=== PATIENT | male | born 1935 | race Caucasian/White ===

== ENCOUNTER 2016-12-30 10:35 | Inpatient (IN) | payer OTHER ==
[~2016-12-30] VITALS: Ht 172.7 cm; Wt 111.5 kg
[~2016-12-30 10:35] MED LIST: ANT25 PO; CHOL1CAP57 PO; CIPR-255 PO; CMD2 PO; CRD200 PO; GABA-112 PO; ROSU20TA PO; TYLOTC500 PO; WARF2TAB PO; ZNTT/150 PO; [UNRECOGNIZED DRUG - CODE] PO
[2016-12-30] MEDS ORDERED: LSN/10125 PO (11:36)
[2016-12-30] MEDS ORDERED: TCMD2 PO (11:36)
[2016-12-30] MEDS ORDERED: VNTHFA/IN INH (11:36)
[2016-12-30] MEDS ORDERED: AMIO200T4 PO (11:36)
[2016-12-30] MEDS ORDERED: ANT25 PO (11:36)
--- NOTE | 2016-12-30 12:06 | DIAGNOSTIC IMAGING REPORT ---
CHEST ONE VIEW PORTABLE CLINICAL HISTORY: Atypical chest pain. Hand and feet swelling. COMPARISON STUDY: 04/20/2013 FINDINGS: The heart is borderline enlarged. There are bilateral calcified pleural plaques. There is no lobar consolidation. There is slight interstitial prominence but no evidence of overt failure.[ No pleural effusions are visualized. IMPRESSION: 1. Mild interstitial prominence but no evidence of overt failure 2. Calcified pleural plaques 3. No evidence of focal pulmonary consolidation Electronically signed by: Michele Young M.D. 12/30/2016 12:04 PM Dictated Date/Time: 12/30/2016 12:04 PM
[2016-12-30 12:15] LABS: BASO % 0.2 %; BASO ABS # 0.02 K/uL (0-0.2); COMPLETE YES; EOS % 0.9 %; HEMATOCRIT 38.7 % (42-52); IG% 1.3 %; LYMPH % 22.9 %; LYMPH ABS # 2.06 K/uL (1.2-3.4); MEAN CELL VOLUME 90.6 fL (80-100); MEAN CORPUSCULAR HEMOGLOBIN 30.9 pg (25-34); MEAN CORPUSCULAR HGB CONC 34.1 g/dl (32-36); MEAN PLATELET VOLUME 9.6 fL (7.4-10.4); MONO % 7.9 %; NEUT % 66.8 %; PLATELET COUNT 165 K/uL (130-400); RED BLOOD COUNT 4.27 M/uL (4.7-6.1); WHITE BLOOD COUNT 8.99 K/uL (4.8-10.8)
[2016-12-30 12:27] LABS: INR 1.7 (0.9-1.1); PARTIAL THROMBOPLASTIN RATIO 1.4; PROTHROMBIN TIME (PATIENT) 19.1 SECONDS (9.0-12.0)
[2016-12-30 12:33] LABS: BUN/CREATININE RATIO 17.8 (10-20); CALCIUM 8.7 mg/dl (8.5-10.1); CREATININE 1.4 mg/dl (0.60-1.40); POTASSIUM 4.2 mmol/L (3.5-5.1)
[2016-12-30 12:38] LABS: CKMB/CK RATIO 1.3 (0-3.0)
[2016-12-30 14:47] LABS: URINE APPEARANCE CLEAR (CLEAR); URINE BILIRUBIN NEG (NEG); URINE COLOR YELLOW; URINE NITRITE NEG (NEG); URINE SPECIFIC GRAVITY 1.014 (1.000-1.030); UROBILINOGEN NEG (NEG)
[2016-12-30 14:56] LABS: MANUAL MICROSCOPIC REQUIRED? NO; REVIEW REQ? NO
[2016-12-30] MEDS ORDERED: ONDANSETRON INJ 2 MG/ML 2 ML VIAL IV PRN (15:15)
[2016-12-30] MEDS ORDERED: ACETAMINOPHEN 325 MG TAB PO PRN (15:15)
[2016-12-30] MEDS ORDERED: LISI-729 PO (15:22)
[2016-12-30] MEDS ORDERED: LEVO25TA PO (15:22)
[2016-12-30] MEDS ORDERED: TAMS0.4C38 PO (15:22)
[2016-12-30] MEDS ORDERED: TRAZ50TA35 PO (15:22)
[2016-12-30] MEDS ORDERED: LISINOPRIL 5 MG TAB PO ONE (15:22)
[2016-12-30] MEDS ORDERED: AMIODARONE 200 MG TAB PO ONE (15:22)
--- NOTE | 2016-12-30 16:13 | History and Physical ---
History & Physical Date of Service Dec 30, 2016. History & Physical This is a 81 year old male with PMH of A. fib on Coumadin, hypothyroidism, HTN, HLD venous insufficiency, asbestosis - presents with lower extremity edema and mild hypoxia - denies feeling short of breath, denies chest pain; no other symptoms to note currently; oxygen in place and saturating well during exam; +2 pitting edema b/l LE VITALS: Last Vital Signs Documentation Date Time Temp Pulse Resp B/P Pulse Ox O2 Delivery O2 Flow Rate FiO2 12/30/16 16:06 51 152/74 93 2.0 12/30/16 13:47 18 Nasal Cannula 12/30/16 10:52 36.6 GEN: no acute distress CVS: RRR, +S1, S2 LUNGS: CTA b/l, no wheezing EXT: +2 pitting edema b/l LE, slightly past the knees Venous Insufficiency swelling likely related to venous insufficiency check an Echo to make sure it is not CHF BNP normal start IV Lasix 20mg for now, switch to PO soon monitor creat A. Fib currently NSR INR = subtherapeutic at 1.7 cont. Coumadin, goal INR of 2-3 Hypoxia likely related to asbestosis and chronic bronchitis follows with Dr. Rascon monitor, saturating better during my exam may need two step
[2016-12-30 17:00] VITALS: BP 164/81; PULSE 57; TEMP 36.4; O2SAT 91; Ht 172.7 cm; Wt 111.5 kg
--- NOTE | 2016-12-30 17:25 | History and Physical ---
History & Physical Date & Time of Service: Dec 30, 2016 at 17:00 Chief Complaint: BLLE Swelling Primary Care Physician: Teo Torres D.O. History of Present Illness 81 year old male who was referred to the ER by his PCP for BLLE edema. Patient reports he first noted the swelling about 3 days ago. He reports it was first in his feet and gradually worked its way up. About one week ago he reports URI type symptoms with cough that was occasionally productive for a yellow sputum. He reports it is improving. He denies chest pain, palpitations, and shortness of breath. No orthopnea. He felt like his pants were fitting a little tighter today. No lightheadedness, dizziness, diaphoresis, or syncopal events. He denies abdominal pain, nausea, vomiting, and diarrhea. No fever or chills. He denies urinary symptoms. In the ER, patient was found to be hypoxic on room at 89%. This improved with oxygen 2L via NC. Labs are unremarkable. CXR shows mild prominence but no overt CHF. EKG does not show any acute ST changes. 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 Status: Chronic (2) History of incisional hernia repair Status: Chronic (3) History of right hemicolectomy Status: Chronic (4) Lysis of adhesions Status: Chronic Family History non contributory due to patient's age Social History Smoking Status: Former Smoker Alcohol Use: none Immunizations History of Influenza Vaccine: Yes Influenza Vaccine Date: Aug 11, 2016 History of Tetanus Vaccine?: Yes Tetanus Immunization Date: May 05, 2016 History of Pneumococcal: Yes Pneumococcal Date: Jan 04, 2016 Multi-Drug Resistant Organisms History of MDRO: No Allergies Coded Allergies: Sulfa Antibiotics (Verified Allergy, Severe, SHORTNESS OF BREATH, 12/30/16) Ezetimibe (Verified Adverse Reaction, Mild, STOMACH UPSET, 12/30/16) Adhesives (Verified Adverse Reaction, Unknown, SKIN TEARING, 12/30/16) Home Medications Scheduled Acetaminophen (Tylenol), 500 MG PO Q6HR PRN Amiodarone Hcl (Cordarone), 200 MG PO QAM Cholecalciferol (Vitamin D3), 1,000 INTER.UNIT PO DAILY Gabapentin (Neurontin), 100 MG PO BID Levothyroxine Sodium (Synthroid), 1 TAB PO DAILY Lisinopril (Prinivil), 5 MG PO DAILY Rosuvastatin Calcium (Crestor), 10 MG PO Q2D Tamsulosin Hcl (Flomax), 1 CAP PO DAILY Trazodone Hcl (Trazodone), 50 MG PO HS Warfarin Sod (Coumadin), 2 MG PO DAILY Warfarin Sodium (Coumadin), 1 MG PO [id number] Scheduled PRN Albuterol Hfa (Ventolin Hfa), 2-4 PUFFS INH Q6H PRN for SOB/Wheezing Meclizine HCl (Meclizine HCl), 20 MG PO TID PRN for Dizziness or Vertigo Review of Systems 10 point review of systems was completed with the pertinent positives and negatives noted per the HPI Physical Exam Vital Signs Date Time Temp Pulse Resp B/P Pulse Ox O2 Delivery O2 Flow Rate FiO2 12/30/16 16:06 51 152/74 93 2.0 12/30/16 13:47 51 18 128/95 93 Nasal Cannula 2.0 12/30/16 13:10 47 12/30/16 12:20 50 20 155/76 95 Nasal Cannula 2.0 12/30/16 11:17 89 12/30/16 11:17 Nasal Cannula 2.0 12/30/16 11:04 60 12/30/16 10:52 36.6 65 19 132/71 92 Room Air General Appearance: no apparent distress Head: normocephalic Eyes: normal inspection ENT: hearing grossly normal Neck: supple, no JVD Respiratory/Chest: lungs clear, normal breath sounds, no respiratory distress Cardiovascular: regular rate, rhythm, normal peripheral pulses, + pertinent finding (+2-3 edema BLLE) Abdomen/GI: normal bowel sounds, non tender, soft, + distended Extremities/Musculoskelatal: normal inspection, no calf tenderness Neurologic/Psych: no motor/sensory deficits, alert, normal mood/affect, oriented x 3 Skin: normal color, warm/dry Diagnostics Laboratory Results Results Past 24 Hours Test 12/30/16 12:00 12/30/16 12:11 12/30/16 14:00 Range/Units White Blood Count 8.99 4.8-10.8 K/uL Red Blood Count 4.27 4.7-6.1 M/uL Hemoglobin 13.2 14.0-18.0 g/dL Hematocrit 38.7 42-52 % Mean Corpuscular Volume 90.6 80-100 fL Mean Corpuscular Hemoglobin 30.9 25-34 pg Mean Corpuscular Hemoglobin Concent 34.1 32-36 g/dl Platelet Count 165 130-400 K/uL Mean Platelet Volume 9.6 7.4-10.4 fL Neutrophils (%) (Auto) 66.8 % Lymphocytes (%) (Auto) 22.9 % Monocytes (%) (Auto) 7.9 % Eosinophils (%) (Auto) 0.9 % Basophils (%) (Auto) 0.2 % Neutrophils # (Auto) 6.00 1.4-6.5 K/uL Lymphocytes # (Auto) 2.06 1.2-3.4 K/uL Monocytes # (Auto) 0.71 0.11-0.59 K/uL Eosinophils # (Auto) 0.08 0-0.5 K/uL Basophils # (Auto) 0.02 0-0.2 K/uL RDW Standard Deviation 45.3 36.4-46.3 fL RDW Coefficient of Variation 13.7 11.5-14.5 % Immature Granulocyte % (Auto) 1.3 % Immature Granulocyte # (Auto) 0.12 0.00-0.02 K/uL Prothrombin Time 19.1 9.0-12.0 SECONDS Prothromb Time International Ratio 1.7 0.9-1.1 Activated Partial Thromboplast Time 37.6 21.0-31.0 SECONDS Partial Thromboplastin Ratio 1.4 Sodium Level 143 136-145 mmol/L Potassium Level 4.2 3.5-5.1 mmol/L Chloride Level 107 98-107 mmol/L Carbon Dioxide Level 28 21-32 mmol/L Anion Gap 8.0 3-11 mmol/L Blood Urea Nitrogen 25 7-18 mg/dl Creatinine 1.40 0.60-1.40 mg/dl Est Creatinine Clear Calc Drug Dose 51.1 ml/min Estimated GFR () 54.2 Estimated GFR (Non- 46.8 BUN/Creatinine Ratio 17.8 10-20 Random Glucose 102 70-99 mg/dl Calcium Level 8.7 8.5-10.1 mg/dl Total Bilirubin 0.8 0.2-1 mg/dl Direct Bilirubin 0.2 0-0.2 mg/dl Aspartate Amino Transf (AST/SGOT) 25 15-37 U/L Alanine Aminotransferase (ALT/SGPT) 26 12-78 U/L Alkaline Phosphatase 72 45-117 U/L Total Creatine Kinase 441 39-308 U/L Creatine Kinase MB 5.8 0.5-3.6 ng/ml Creatine Kinase MB Ratio 1.3 0-3.0 Total Protein 6.9 6.4-8.2 gm/dl Albumin 3.5 3.4-5.0 gm/dl Lipase 112 73-393 U/L Bedside Troponin I 0.000 0-0.045 ng/ml TH-Fqa-P-Type Natriuretic Peptide 172 0-1800 pg/ml Urine Color YELLOW Urine Appearance CLEAR CLEAR Urine pH 5.0 4.5-7.5 Urine Specific [place] 1.014 1.000-1.030 Urine Protein NEG NEG Urine Glucose (UA) NEG NEG Urine Ketones NEG NEG Urine Occult Blood NEG NEG Urine Nitrite NEG NEG Urine Bilirubin NEG NEG Urine Urobilinogen NEG NEG Urine Leukocyte Esterase NEG NEG Microbiology Results 12/30/16 Urine Culture, Received Pending Diagnostic Radiology CXR IMPRESSION: 1. Mild interstitial prominence but no evidence of overt failure 2. Calcified pleural plaques 3. No evidence of focal pulmonary consolidation Impression Assessment and Plan HYPOXIA, ACUTE ON CHRONIC DIASTOLIC CHF - admit to tele - patient presenting with increasing BLLE x 3 days; found to be hypoxic on room air at 89%, improved with oxygen 2L via NC - no hx of CHF; echo 2012 - EF 55-60%, grade I diastolic dysfunction - hx of PFTs that showed small airway disease - likely contributing to hypoxia as well - CXR shows mild CHF; patient reports URI symptoms x 1 week ago which are improving - no infiltrate on CXR ; patient afebrile with normal WBC - currently not on diuretics - will start Lasix 20mg IV daily - I/Os, daily weights, low Na+ diet - update echo - could consider PE; patient is on Coumadin however INR subtherapeutic; treat CHF first and if patient does not improve, would get CTA chest - may need home O2 eval before discharge PAROXYSMAL A. FIB - currently in NSR - rhythm controlled on amiodarone, will continue - on Coumadin, INR 1.7 - will adjust Coumadin accordingly HTN - BP controlled, continue Lisinopril CKD STAGE III - baseline creat runs in the low 1's - creat noted to be 1.4 today - continue to monitor, avoid nephrotoxic agents when able DVT PROPHYLAXIS - on Coumadin CODE STATUS - Patient is a full code as per my discussion with him. DISPO - In my clinical judgment this beneficiary meets acute admission criteria, established by [facility], that includes being hospitalized through two midnights. VTE Prophylaxis VTE Risk Assessment Done? Y/N: Yes Risk Level: Moderate
[2016-12-30 17:52] VITALS: BP 157/80; PULSE 59
[2016-12-30] MEDS: FUROSEMIDE INJ 20 MG in SYRINGE 0 ML IV SCH (17:59)
[2016-12-30] MEDS: WARFARIN SOD 2 MG TAB PO SCH (17:59)
[2016-12-30 19:45] VITALS: BP 182/89; PULSE 59; TEMP 36.3; O2SAT 94
[2016-12-30 20:00] VITALS: O2SAT 94
[2016-12-30 20:18] VITALS: BP 146/76; PULSE 50
[2016-12-30] MEDS: GABAPENTIN 100 MG CAP PO SCH (20:47)
[2016-12-30] MEDS ORDERED: TRAZODONE HCL 50 MG TAB PO SCH (21:00)
[2016-12-30 23:48] VITALS: BP 109/51; PULSE 49; TEMP 36.9; O2SAT 94
[2016-12-31] VITALS (9 sets, daily range): BP systolic 108–154; BP diastolic 56–76; PULSE 47–84; TEMP 36.4–36.8; O2SAT 93–97
[2016-12-31 06:21] LABS: INR 1.9 (0.9-1.1); PROTHROMBIN TIME (PATIENT) 20.8 SECONDS (9.0-12.0)
[2016-12-31] MEDS ORDERED: LEVOTHYROXINE 25 MCG TAB PO SCH (06:30)
[2016-12-31 06:42] LABS: BUN/CREATININE RATIO 18.8 (10-20); CALCIUM 8.4 mg/dl (8.5-10.1); CREATININE 1.2 mg/dl (0.60-1.40)
[2016-12-31 06:53] LABS: HEMATOCRIT 38.6 % (42-52); MEAN CORPUSCULAR HEMOGLOBIN 31.6 pg (25-34); MEAN CORPUSCULAR HGB CONC 33.9 g/dl (32-36); MEAN PLATELET VOLUME 10.1 fL (7.4-10.4); PLATELET COUNT 164 K/uL (130-400); RED BLOOD COUNT 4.15 M/uL (4.7-6.1); WHITE BLOOD COUNT 6.85 K/uL (4.8-10.8)
[2016-12-31] MEDS: GABAPENTIN 100 MG CAP PO SCH (08:21)
[2016-12-31] MEDS: FUROSEMIDE INJ 20 MG in SYRINGE 0 ML IV SCH (08:21)
[2016-12-31] MEDS ORDERED: LISINOPRIL 5 MG TAB PO SCH (09:00)
[2016-12-31] MEDS ORDERED: ROSUVASTATIN CALCIUM 10 MG TAB PO SCH (09:00)
[2016-12-31] MEDS ORDERED: AMIODARONE 200 MG TAB PO SCH (09:00)
[2016-12-31] MEDS ORDERED: CHOLECALCIFEROL 1000 INTER.UNIT TAB PO SCH (09:00)
[2016-12-31] MEDS ORDERED: TAMSULOSIN HCL 0.4 MG CAP PO SCH (09:00)
--- NOTE | 2016-12-31 11:38 | Progress Note ---
Subjective Date of Service: Dec 31, 2016. Subjective Pt evaluation today including: conversation w/ patient, physical exam, lab review, review of studies, review of inpatient medication list Saw/examined the patient in room 283 Improvement of lower extremity edema No shortness of breath - no hypoxia noted this morning Review of Systems Constitutional: No chills, No fever Respiratory: + cough, No dyspnea at rest, No dyspnea on exertion, No hemoptysis , No shortness of breath, No sputum, No wheezing Cardiac: + edema, No chest pain, No palpitations Abdomen: No diarrhea, No nausea, No pain, No vomiting Male : + urinary frequency Medications Current Inpatient Medications Medications (Trade) Dose Ordered Sig/Anne-Marie Route Start Time Stop Time Status Last Admin Dose Admin Acetaminophen (Tylenol Tab) 650 mg Q4H PRN PO 12/30/16 15:15 01/29/17 15:14 Ondansetron HCl 4 mg 4 mg Q6H PRN IV 12/30/16 15:15 01/29/17 15:14 Furosemide/Syringe (Lasix Inj/ Syringe) 2 ml @ 4 mls/min DAILY IV 12/30/16 17:00 01/29/17 16:59 12/31/16 08:21 4 MLS/MIN Amiodarone HCl (Cordarone Tab) 200 mg QAM PO 12/31/16 09:00 01/30/17 08:59 Gabapentin (Neurontin Cap) 100 mg BID PO 12/30/16 21:00 01/29/17 20:59 12/31/16 08:21 100 MG Levothyroxine Sodium (Synthroid Tab) 25 mcg DAILYBB PO 12/31/16 06:30 01/30/17 06:59 12/31/16 06:03 25 MCG Lisinopril (Zestril Tab) 5 mg DAILY PO 12/31/16 09:00 01/30/17 08:59 Rosuvastatin Calcium (Crestor Tab) 10 mg Q2D@0900 PO 12/31/16 09:00 01/30/17 08:59 12/31/16 08:22 10 MG Tamsulosin HCl (Flomax Cap) 0.4 mg DAILY PO 12/31/16 09:00 01/30/17 08:59 12/31/16 08:22 0.4 MG Trazodone HCl (Desyrel Tab) 50 mg HS PO 12/30/16 21:00 01/29/17 20:59 12/30/16 20:47 50 MG Cholecalciferol (Vitamin D Tab) 1,000 inter.unit DAILY PO 12/31/16 09:00 01/30/17 08:59 12/31/16 08:21 1,000 INTER.UNIT Warfarin Sodium (Coumadin Tab) 2 mg DAILY@16 PO 12/30/16 16:00 01/29/17 15:59 12/30/16 17:59 2 MG Objective Vital Signs Date Time Temp Pulse Resp B/P Pulse Ox O2 Delivery O2 Flow Rate FiO2 12/31/16 09:26 94 12/31/16 08:00 93 Room Air 12/31/16 07:29 36.8 49 20 154/75 93 12/31/16 04:16 36.7 47 18 108/56 96 Nasal Cannula 1.0 12/31/16 04:00 94 Nasal Cannula 1.0 12/31/16 00:00 94 Nasal Cannula 1.0 12/30/16 23:48 36.9 49 16 109/51 94 Nasal Cannula 1.0 12/30/16 20:18 50 146/76 12/30/16 20:00 94 Nasal Cannula 1.0 12/30/16 19:45 36.3 59 20 182/89 94 Nasal Cannula 2.0 12/30/16 17:52 59 157/80 12/30/16 17:00 36.4 57 18 164/81 91 Nasal Cannula 1.0 12/30/16 16:06 51 152/74 93 2.0 12/30/16 13:47 51 18 128/95 93 Nasal Cannula 2.0 12/30/16 13:10 47 12/30/16 12:20 50 20 155/76 95 Nasal Cannula 2.0 12/30/16 11:17 89 12/30/16 11:17 Nasal Cannula 2.0 Physical Exam General Appearance: no apparent distress ENT: hearing grossly normal Neck: supple Respiratory/Chest: chest non-tender, lungs clear, normal breath sounds, no respiratory distress Cardiovascular: regular rate, rhythm, no edema, no gallop, no JVD, no murmur Abdomen: normal bowel sounds, non tender, soft Extremities: + swelling (+2 pitting edema b/l LE) Neurologic/Psychiatric: no motor/sensory deficits, alert, normal mood/affect Laboratory Results Last 24 Hours Test 12/30/16 12:00 12/30/16 12:11 12/30/16 14:00 12/30/16 18:00 White Blood Count 8.99 K/uL Red Blood Count 4.27 M/uL Hemoglobin 13.2 g/dL Hematocrit 38.7 % Mean Corpuscular Volume 90.6 fL Mean Corpuscular Hemoglobin 30.9 pg Mean Corpuscular Hemoglobin Concent 34.1 g/dl Platelet Count 165 K/uL Mean Platelet Volume 9.6 fL Neutrophils (%) (Auto) 66.8 % Lymphocytes (%) (Auto) 22.9 % Monocytes (%) (Auto) 7.9 % Eosinophils (%) (Auto) 0.9 % Basophils (%) (Auto) 0.2 % Neutrophils # (Auto) 6.00 K/uL Lymphocytes # (Auto) 2.06 K/uL Monocytes # (Auto) 0.71 K/uL Eosinophils # (Auto) 0.08 K/uL Basophils # (Auto) 0.02 K/uL RDW Standard Deviation 45.3 fL RDW Coefficient of Variation 13.7 % Immature Granulocyte % (Auto) 1.3 % Immature Granulocyte # (Auto) 0.12 K/uL Prothrombin Time 19.1 SECONDS Prothromb Time International Ratio 1.7 Activated Partial Thromboplast Time 37.6 SECONDS Partial Thromboplastin Ratio 1.4 Sodium Level 143 mmol/L Potassium Level 4.2 mmol/L Chloride Level 107 mmol/L Carbon Dioxide Level 28 mmol/L Anion Gap 8.0 mmol/L Blood Urea Nitrogen 25 mg/dl Creatinine 1.40 mg/dl Est Creatinine Clear Calc Drug Dose 51.1 ml/min Estimated GFR () 54.2 Estimated GFR (Non- 46.8 BUN/Creatinine Ratio 17.8 Random Glucose 102 mg/dl Calcium Level 8.7 mg/dl Total Bilirubin 0.8 mg/dl Direct Bilirubin 0.2 mg/dl Aspartate Amino Transf (AST/SGOT) 25 U/L Alanine Aminotransferase (ALT/SGPT) 26 U/L Alkaline Phosphatase 72 U/L Total Creatine Kinase 441 U/L Creatine Kinase MB 5.8 ng/ml Creatine Kinase MB Ratio 1.3 Total Protein 6.9 gm/dl Albumin 3.5 gm/dl Lipase 112 U/L Bedside Troponin I 0.000 ng/ml [id number] Natriuretic Peptide 172 pg/ml Urine Color YELLOW Urine Appearance CLEAR Urine pH 5.0 Urine Specific [place] 1.014 Urine Protein NEG Urine Glucose (UA) NEG Urine Ketones NEG Urine Occult Blood NEG Urine Nitrite NEG Urine Bilirubin NEG Urine Urobilinogen NEG Urine Leukocyte Esterase NEG Test 12/30/16 18:06 12/31/16 00:00 12/31/16 00:34 12/31/16 05:37 Creatine Kinase MB 5.3 ng/ml 5.5 ng/ml Troponin I 0.016 ng/ml 0.020 ng/ml Creatine Kinase MB Ratio White Blood Count 6.85 K/uL Red Blood Count 4.15 M/uL Hemoglobin 13.1 g/dL Hematocrit 38.6 % Mean Corpuscular Volume 93.0 fL Mean Corpuscular Hemoglobin 31.6 pg Mean Corpuscular Hemoglobin Concent 33.9 g/dl RDW Standard Deviation 47.3 fL RDW Coefficient of Variation 13.9 % Platelet Count 164 K/uL Mean Platelet Volume 10.1 fL Prothrombin Time 20.8 SECONDS Prothromb Time International Ratio 1.9 Sodium Level 142 mmol/L Potassium Level 4.0 mmol/L Chloride Level 106 mmol/L Carbon Dioxide Level 27 mmol/L Anion Gap 9.0 mmol/L Blood Urea Nitrogen 23 mg/dl Creatinine 1.20 mg/dl Est Creatinine Clear Calc Drug Dose 58.4 ml/min Estimated GFR () 65.3 Estimated GFR (Non- 56.4 BUN/Creatinine Ratio 18.8 Random Glucose 86 mg/dl Calcium Level 8.4 mg/dl Assessment and Plan This is a 81 year old male with PMH of A. fib on Coumadin, hypothyroidism, HTN, HLD, venous insufficiency, asbestosis - presents with lower extremity edema and mild hypoxia Venous Insufficiency 3/2 edema in the legs has improved residual edema remains due to venous insufficiency I will switch IV Lasix to low dose PO Lasix discharge with potassium supplementation creat improved today echo to be performed today and then outpatient PCP follow-up 3/1 swelling likely related to venous insufficiency check an Echo to make sure it is not CHF BNP normal start IV Lasix 20mg for now, switch to PO soon monitor creat A. Fib 3/2 INR up to 1.9 continue Coumadin with a goal INR of 2-3 outpatient Coumadin clinic f/u 3/1 currently NSR INR = subtherapeutic at 1.7 cont. Coumadin, goal INR of 2-3 Hypoxia / no longer hypoxic today currently on room air outpatient pulm follow-up 12/30 likely related to asbestosis and chronic bronchitis follows with Dr. Rascon monitor, saturating better during my exam may need two step HTN blood pressure labile continue Lisinopril started on Lasix if BP remains high as outpatient can uptitrate EVIE-I CKD stage 3 creat on admission 1.4 today improved to 1.2 monitor after starting low dose Lasix DVT ppx Coumadin FULL CODE
[2016-12-31] MEDS ORDERED: MCRK20 PO (11:41)
[2016-12-31] MEDS ORDERED: FURO20TA PO (11:41)
--- NOTE | 2016-12-31 11:44 | Discharge Instructions ---
Discharge Instructions Admission Reason for Admission: Hypoxia Discharge Discharge Diagnosis / Problem: Hypoxia, lower extremity edema Discharge Goals Goal(s): Decrease discomfort, Improve function, Diagnostic testing, Therapeutic intervention Activity Recommendations Activity Limitations: resume your previous activity . Instructions / Follow-Up Instructions / Follow-Up Please follow-up with Dr. Torres on January 05 @ 2:50PM * You are started on Lasix (water pill) - this will help with the fluid build- up in your legs * You should also take potassium supplements as Lasix can decrease potassium levels * Primary care should schedule outpatient echo if not done recently * Outpatient pulmonology follow-up * Outpatient Coumadin clinic follow-up; goal INR of 2-3 Current Hospital Diet Patient's current hospital diet: AHA Diet (Heart Healthy), Low Sodium Diet (2gm Na) Discharge Diet Recommended Diet: AHA Diet (Heart Healthy), Low Sodium Diet (2gm Na) Pending Studies Studies pending at discharge: yes List of pending studies: echocardiogram Medical Emergencies . Who to Call and When: Medical Emergencies: If at any time you feel your situation is an emergency, please call 911 immediately. . Non-Emergent Contact Non-Emergency issues call your: Primary Care Provider . . "Provider Documentation" section prepared by Hair Brooks. VTE Core Measure Inpt VTE Proph given/why not?: Warfarin (Coumadin)
--- NOTE | 2016-12-31 11:46 | Discharge Summary ---
Discharge Summary Date of Service Dec 31, 2016. Discharge Summary Admission Date: Dec 30, 2016 at 15:11 Discharge Date: Dec 31, 2016 Discharge Disposition: Home Principal Diagnosis: Hypoxia Lower Extremity Edema - Venous Insufficiency Atrial Fibrillation Medication Reconciliation New Medications: Furosemide (Lasix) 20 Mg Tab 1 TAB PO DAILY for 30 Days, #30 TAB 1 Refill Potassium Chloride (Klor-Con M20) 20 Meq Tabcr 20 MEQ PO DAILY for 30 Days, #30 TAB Continued Medications: Acetaminophen (Tylenol) 500 Mg Tab 500 MG PO Q6HR PRN Albuterol Hfa (Ventolin Hfa) 200 Puffs/16293 Mcg Aers 2-4 PUFFS INH Q6H PRN for SOB/Wheezing, #1 INHALER Amiodarone Hcl (Cordarone) 200 Mg Tab 200 MG PO QAM Cholecalciferol (Vitamin D3) 1,000 Unit Cap 1000 INTER.UNIT PO DAILY Gabapentin (Neurontin) 100 Mg Cap 100 MG PO BID, 0 Refills Levothyroxine Sodium (Synthroid) 25 Mcg Tab 1 TAB PO DAILY for 30 Days, #30 TAB 5 Refills Lisinopril (Prinivil) 5 Mg Tab 5 MG PO DAILY, TAB Meclizine HCl (Meclizine HCl) 25 Mg Tab 20 MG PO TID PRN for Dizziness or Vertigo Rosuvastatin Calcium (Crestor) 20 Mg Tab 10 MG PO Q2D Tamsulosin Hcl (Flomax) 0.4 Mg Cap 1 CAP PO DAILY for 30 Days, #30 CAP 5 Refills Trazodone Hcl (Trazodone) 50 Mg Tab 50 MG PO HS, TAB Warfarin Sod (Coumadin) 2 Mg Tab 2 MG PO DAILY TAKES WED, , , WED Warfarin Sodium (Coumadin) 2 Mg Tab 1 MG PO [id number], TAB TAKES MON,WED,FRI Admission Information HPI (per Admitting provider): 81 year old male who was referred to the ER by his PCP for BLLE edema. Patient reports he first noted the swelling about 3 days ago. He reports it was first in his feet and gradually worked its way up. About one week ago he reports URI type symptoms with cough that was occasionally productive for a yellow sputum. He reports it is improving. He denies chest pain, palpitations, and shortness of breath. No orthopnea. He felt like his pants were fitting a little tighter today. No lightheadedness, dizziness, diaphoresis, or syncopal events. He denies abdominal pain, nausea, vomiting, and diarrhea. No fever or chills. He denies urinary symptoms. In the ER, patient was found to be hypoxic on room at 89%. This improved with oxygen 2L via NC. Labs are unremarkable. CXR shows mild prominence but no overt CHF. EKG does not show any acute ST changes. Physical Exam (per Admitting): General Appearance: no apparent distress Head: normocephalic Eyes: normal inspection ENT: hearing grossly normal Neck: supple, no JVD Respiratory/Chest: lungs clear, normal breath sounds, no respiratory distress Cardiovascular: regular rate, rhythm, normal peripheral pulses, + pertinent finding (+2-3 edema BLLE) Abdomen/GI: normal bowel sounds, non tender, soft, + distended Extremities/Musculoskelatal: normal inspection, no calf tenderness Neurologic/Psych: no motor/sensory deficits, alert, normal mood/affect, oriented x 3 Skin: normal color, warm/dry Hospital Course This is a 81 year old male with PMH of A. fib on Coumadin, hypothyroidism, HTN, HLD, venous insufficiency, asbestosis - presents with lower extremity edema and mild hypoxia Venous Insufficiency 3/2 edema in the legs has improved residual edema remains due to venous insufficiency I will switch IV Lasix to low dose PO Lasix discharge with potassium supplementation creat improved today echo to be performed today and then outpatient PCP follow-up 12/30 swelling likely related to venous insufficiency check an Echo to make sure it is not CHF BNP normal start IV Lasix 20mg for now, switch to PO soon monitor creat A. Fib 3/2 INR up to 1.9 continue Coumadin with a goal INR of 2-3 outpatient Coumadin clinic f/u 12/30 currently NSR INR = subtherapeutic at 1.7 cont. Coumadin, goal INR of 2-3 Hypoxia 3/2 no longer hypoxic today currently on room air outpatient pulm follow-up 12/30 likely related to asbestosis and chronic bronchitis follows with Dr. Rascon monitor, saturating better during my exam may need two step HTN blood pressure labile continue Lisinopril started on Lasix if BP remains high as outpatient can uptitrate EVIE-I CKD stage 3 creat on admission 1.4 today improved to 1.2 monitor after starting low dose Lasix DVT ppx Coumadin FULL CODE Total time spent on discharge = 35 minutes This includes examination of the patient, discharge planning, medication reconciliation, and communication with other providers. Discharge Instructions Please follow-up with Dr. Torres on January 05 @ 2:50PM * You are started on Lasix (water pill) - this will help with the fluid build- up in your legs * You should also take potassium supplements as Lasix can decrease potassium levels * Primary care should schedule outpatient echo if not done recently * Outpatient pulmonology follow-up * Outpatient Coumadin clinic follow-up; goal INR of 2-3
[2016-12-31] MEDS: WARFARIN SOD 2 MG TAB PO SCH (16:14)
--- NOTE | 2016-12-31 23:39 | EMERGENCY ROOM VISIT NOTE ---
History Report prepared by Rosalba: Landon Nieves Under the Supervision of: Dr. Rios Hall M.D. First contact with patient: 11:35 Chief Complaint: SWELLING TO EXTREMITY Stated Complaint: R/O CHF, SWELLING OF HANDS/FEET History of Present Illness The patient is a 81 year old male who presents to the Emergency Room with complaints of persistent bilateral lower extremity swelling starting about 3 days ago. He reports a cough and cold-like symptoms occurring for the past few days. He reports a normal appetite and a normal fluid intake. He denies fevers, chills, chest pain, shortness of breath, nausea, vomiting, bowel/bladder problems, or any other complaints. He denies any history of similar symptoms. [facility]. He is borderline diabetic. He is on Coumadin for A-Fib. No fall or trauma. No history of similar Source of History: patient, spouse/significant other Onset: about 3 days ago Position: other (bilateral lower extremity) Quality: other (swelling) Timing: other (persistent) Associated Symptoms: + cough, No SOB, No chest pain, No chills, No fevers, No nausea, No vomiting Review of Systems See HPI for pertinent positives & negatives. A total of 10 systems reviewed and were otherwise negative. 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 Nurse's notes were reviewed and I agree with. He is on Coumadin for A. fib Family History FH: heart disease FHx: cancer Hypertension Social History Smoking Status: Former Smoker Alcohol Use: none Drug Use: none Marital Status: Occupation Status: employed Current/Historical Medications Scheduled Acetaminophen (Tylenol), 500 MG PO Q6HR PRN Amiodarone Hcl (Cordarone), 200 MG PO QAM Cholecalciferol (Vitamin D3), 1,000 INTER.UNIT PO DAILY Furosemide (Lasix), 1 TAB PO DAILY Gabapentin (Neurontin), 100 MG PO BID Levothyroxine Sodium (Synthroid), 1 TAB PO DAILY Lisinopril (Prinivil), 5 MG PO DAILY Potassium Chloride (Klor-Con M20), 20 MEQ PO DAILY Rosuvastatin Calcium (Crestor), 10 MG PO Q2D Tamsulosin Hcl (Flomax), 1 CAP PO DAILY Trazodone Hcl (Trazodone), 50 MG PO HS Warfarin Sod (Coumadin), 2 MG PO DAILY Warfarin Sodium (Coumadin), 1 MG PO [id number] Scheduled PRN Albuterol Hfa (Ventolin Hfa), 2-4 PUFFS INH Q6H PRN for SOB/Wheezing Meclizine HCl (Meclizine HCl), 20 MG PO TID PRN for Dizziness or Vertigo Allergies Coded Allergies: Sulfa Antibiotics (Verified Allergy, Severe, SHORTNESS OF BREATH, 12/30/16) Ezetimibe (Verified Adverse Reaction, Mild, STOMACH UPSET, 12/30/16) Adhesives (Verified Adverse Reaction, Unknown, SKIN TEARING, 12/30/16) Physical Exam Vital Signs Date Time Temp Pulse Resp B/P Pulse Ox O2 Delivery O2 Flow Rate FiO2 12/30/16 13:47 51 18 128/95 93 Nasal Cannula 2.0 12/30/16 13:10 47 12/30/16 12:20 50 20 155/76 95 Nasal Cannula 2.0 12/30/16 11:17 89 12/30/16 11:17 Nasal Cannula 2.0 12/30/16 11:04 60 12/30/16 10:52 36.6 65 19 132/71 92 Room Air Physical Exam General: Non-ill appearing, older male, in no acute distress. HEENT: Normal cephalic atraumatic. Pupils are equal round and reactive to light. Extraocular movements are intact. Oropharynx is pink with moist mucous membranes. No swelling of the mouth lips or tongue. Neck: Supple with a midline trachea. No meningeal signs or stiffness, no JVD or bruits. No Stridor. Chest: Clear to auscultation bilaterally. No wheezes or rhonchi. No increased work of breathing. Heart: regular rate and rhythm. Abdomen: Soft nontender, nondistended without rebound guarding or rigidity. Extremities: Bilateral lower extremity edema. No cyanosis or clubbing. No calf tenderness or assymetry Spine/Back. Non tender to palpation. No CVA tenderness Skin: Good turgor without rashes. Neurologic exam: Cranial nerves two through 12 are intact. Motor and sensation are intact and symmetrical throughout. Medical Decision & Procedures ER Provider Diagnostic Interpretation: X-ray results as stated below per interpretation by me and the radiologist: CHEST ONE VIEW PORTABLE CLINICAL HISTORY: Atypical chest pain. Hand and feet swelling. COMPARISON STUDY: 04/20/2013 FINDINGS: The heart is borderline enlarged. There are bilateral calcified pleural plaques. There is no lobar consolidation. There is slight interstitial prominence but no evidence of overt failure.[ No pleural effusions are visualized. IMPRESSION: 1. Mild interstitial prominence but no evidence of overt failure 2. Calcified pleural plaques 3. No evidence of focal pulmonary consolidation Electronically signed by: Michele Young M.D. 12/30/2016 12:04 PM Dictated Date/Time: 12/30/2016 12:04 PM Laboratory Results Test 12/30/16 12:00 12/30/16 12:11 12/30/16 14:00 Immature Granulocyte % (Auto) 1.3 % White Blood Count 8.99 K/uL (4.8-10.8) Red Blood Count 4.27 M/uL (4.7-6.1) Hemoglobin 13.2 g/dL (14.0-18.0) Hematocrit 38.7 % (42-52) Mean Corpuscular Volume 90.6 fL (80-100) Mean Corpuscular Hemoglobin 30.9 pg (25-34) Mean Corpuscular Hemoglobin Concent 34.1 g/dl (32-36) Platelet Count 165 K/uL (130-400) Mean Platelet Volume 9.6 fL (7.4-10.4) Neutrophils (%) (Auto) 66.8 % Lymphocytes (%) (Auto) 22.9 % Monocytes (%) (Auto) 7.9 % Eosinophils (%) (Auto) 0.9 % Basophils (%) (Auto) 0.2 % Neutrophils # (Auto) 6.00 K/uL (1.4-6.5) Lymphocytes # (Auto) 2.06 K/uL (1.2-3.4) Monocytes # (Auto) 0.71 K/uL (0.11-0.59) Eosinophils # (Auto) 0.08 K/uL (0-0.5) Basophils # (Auto) 0.02 K/uL (0-0.2) Immature Granulocyte # (Auto) 0.12 K/uL (0.00-0.02) Activated Partial Thromboplast Time 37.6 SECONDS (21.0-31.0) Partial Thromboplastin Ratio 1.4 Total Bilirubin 0.8 mg/dl (0.2-1) Direct Bilirubin 0.2 mg/dl (0-0.2) Aspartate Amino Transf (AST/SGOT) 25 U/L (15-37) Alanine Aminotransferase (ALT/SGPT) 26 U/L (12-78) Alkaline Phosphatase 72 U/L (45-117) Total Creatine Kinase 441 U/L (39-308) Total Protein 6.9 gm/dl (6.4-8.2) Albumin 3.5 gm/dl (3.4-5.0) Lipase 112 U/L (73-393) Bedside Troponin I 0.000 ng/ml (0-0.045) XU-Tim-J-Type Natriuretic Peptide 172 pg/ml (0-1800) Urine Color YELLOW Urine Appearance CLEAR (CLEAR) Urine pH 5.0 (4.5-7.5) Urine Specific [place] 1.014 (1.000-1.030) Urine Protein NEG (NEG) Urine Glucose (UA) NEG (NEG) Urine Ketones NEG (NEG) Urine Occult Blood NEG (NEG) Urine Nitrite NEG (NEG) Urine Bilirubin NEG (NEG) Urine Urobilinogen NEG (NEG) Urine Leukocyte Esterase NEG (NEG) Laboratory studies as stated above per my review. ECG Indication: other (Lower extremity swelling) Rate (beats per minute): 59 Rhythm: sinus bradycardia Findings: no acute ischemic change, no ectopy Comparison ECG Date: April 20, 2013 Change: no significant change ED Course 1135: Past medical records reviewed. The patient was evaluated in room C11B, and a complete history and physical examination were performed. 1419: Upon reevaluation, the patient is resting comfortably on supplemental oxygen. I discussed the results and treatment plan with the patient. He verbalized agreement of the treatment plan. The patient will be evaluated for further management. 1427: I discussed the patient's case with PAMELLA Waite with [facility]. Medical Decision Differential diagnosis includes but is not limited to CHF, electrolyte or metabolic abnormalities, infection, acute coronary syndrome, arrhythmia. This patient comes in as described above. He has bilateral lower extremity edema and so has some mild hypoxemia. This is concerning for CHF among other potential etiologies. EKG shows A. fib but no ischemic changes. I presume this is chronic as he is also on anticoagulation with Coumadin and is just slightly subtherapeutic. He has no significant electrolyte or metabolic abnormalities. Chest x-ray does not show any overt CHF. I do think he needs to be admitted for possible diuresis, further treatment and cardiac evaluation. I have consulted the [facility] hospitalist who saw him in the ER. Consults Time Called: 1420 Consulting Physician: PAMELLA Waite with [facility] Returned Call: [phone] I discussed the patient's case with PAMELLA Waite with [facility]. Impression Primary Impression: Peripheral edema Additional Impressions: CHF (congestive heart failure) Hypoxemia Scribe Attestation The scribe's documentation has been prepared under my direction and personally reviewed by me in its entirety. I confirm that the note above accurately reflects all work, treatment, procedures, and medical decision making performed by me. Departure Information Dispostion Being Evaluated By Hospitalist Prescriptions Potassium Chloride (Klor-Con M20) 20 Meq Tabcr 20 MEQ PO DAILY for 30 Days, #30 TAB Prov: Hair Brooks, 12/31/16 Furosemide (LASIX) 20 Mg Tab 1 TAB PO DAILY for 30 Days, #30 TAB 1 Refill Prov: Hair Brooks, 12/31/16 Referrals No Doctor, Assigned (PCP) Patient Instructions My [facility] Problem Qualifiers
== END 2016-12-31 17:42 | disposition home or self-care (01) | DRG 291 ==
LOC: ENRESERVDT → ENRESERVTM → C.EDB 10:36 → C.MED 15:11
PROVIDERS: ADMIT Family Medicine; ATTEND Family Medicine
DX: I13.0 Hypertensive heart and chronic kidney disease with heart failure and stage 1 through stage 4 chronic kidney disease, or unspecified chronic kidney disease (principal); I50.33 Acute on chronic diastolic (congestive) heart failure; I48.2 Chronic atrial fibrillation; I48.0 Paroxysmal atrial fibrillation; N18.3 Chronic kidney disease, stage 3 (moderate); N40.0 Benign prostatic hyperplasia without lower urinary tract symptoms; K21.9 Gastro-esophageal reflux disease without esophagitis; E03.9 Hypothyroidism, unspecified; R09.02 Hypoxemia; E78.5 Hyperlipidemia, unspecified; I87.2 Venous insufficiency (chronic) (peripheral); J42 Unspecified chronic bronchitis; Z87.891 Personal history of nicotine dependence; Z79.01 Long term (current) use of anticoagulants; Z79.899 Other long term (current) drug therapy; Z77.090 Contact with and (suspected) exposure to asbestos; Z87.09 Personal history of other diseases of the respiratory system; Z98.1 Arthrodesis status

== ENCOUNTER → 2018-03-07 | Outpatient (CLI) | payer OTHER ==
[~2018-03-07] MED LIST changes: +AMIO200T4 PO; -CIPR-255 PO; -CMD2 PO; -CRD200 PO; +FURO20TA PO; +LEVO25TA PO; +LISI-729 PO; +MCRK20 PO; +TAMS0.4C38 PO; +TCMD2 PO; +TRAZ50TA35 PO; +VNTHFA/IN INH; -ZNTT/150 PO; -[UNRECOGNIZED DRUG - CODE] PO
== END | disposition home or self-care (01) ==
LOC: C.LABSPEC 10:09
PROVIDERS: ATTEND Urology
DX: N40.1 Benign prostatic hyperplasia with lower urinary tract symptoms (principal)